=== PATIENT | female | born 1990 | race Hispanic/Latino ===

== ENCOUNTER 2016-04-15 13:05 | Emergency (ER) | payer OTHER ==
[~2016-04-15] VITALS: Ht 157.5 cm; Wt 66.7 kg
[2016-04-15 13:16] VITALS: BP 124/75
[2016-04-15] MEDS ORDERED: PREDNISONE20 MG PO (18:00)
[2016-04-15] MEDS ORDERED: LIDODERM 5% P1 PATCH TD (18:00)
[2016-04-15] MEDS ORDERED: NAPROXEN500 MG PO (18:00)
== END 2016-04-15 18:36 | disposition home or self-care (01) ==
LOC: EME 13:05 → EXP 13:05
DX: M54.32 Sciatica, left side (principal); S16.1XXA Strain of muscle, fascia and tendon at neck level, initial encounter; V49.10XA Passenger injured in collision with unspecified motor vehicles in nontraffic accident, initial encounter
CPT/HCPCS: 72040; 72070; 72100; 99281; 99283; J1885; J7512